=== PATIENT | female | born 1970 | race Caucasian/White ===

== ENCOUNTER 2023-02-27 17:39 | Emergency (ER) | payer OTHER, SELFPAY ==
--- NOTE | ~2023-02-27 | XR_ITS ---
EXAMINATION: XR chest 2V DATE: 02/27/2023 18:27 INDICATION: Chest pain TECHNIQUE: Frontal and lateral views of the chest are obtained COMPARISON: None available FINDINGS: The lungs are free of acute opacities. No pleural effusion or pneumothorax. The cardiomedia stinal silhouette is normal. There is moderate thoracic spondylosis. Surgical changes noted in the pa rtially imaged lower cervical spine. IMPRESSION: 1. No acute cardiopulmonary abnormality. Reviewed, dictated and finalized at location F.
--- NOTE | 2023-02-27 17:47 | ED.CHESTPAIN ---
HPI - Chest Pain General Chief Complaint: Chest Pain Stated Complaint: Chest Wall Pain Time Seen by Provider: 02/27/23 18:04 Mode of arrival: ambulatory Limitations: no limitations History of Present Illness HPI narrative: 52-year-old female presents concern for chest pain. She reports she has had symptoms for about 2 weeks. She reports it feels like a tightness that radiates from the chest to the back. She reports she saw her primary care doctor who told her it was likely indigestion. She reports symptoms seem to get worse today. She reports her primary care doctor told her to go the emergency room, but she did not want to wait so she came here. She denies current shortness of breath, history of heart problems are lung problems. Reports she felt short of breath while lying flat tonight. Patient started taking Victoza about 5 weeks ago for type 2 diabetes MD complaint: chest pain Related Data Allergies Allergy/AdvReac Type Severity Reaction Status Date / Time acetaminophen Allergy Mild Other Verified 02/27/23 17:55 hydrocodone Allergy Mild Other Verified 02/27/23 17:55 pregabalin Allergy Mild Other Verified 02/27/23 17:55 propoxyphene Allergy Mild Other Verified 02/27/23 17:55 PENICILLIN V POTASSIUM Allergy Mild Other Uncoded 02/27/23 17:55 Review of Systems Review of Systems: CONSTITUTIONAL: Denies malaise, chills, sweats, or fever. ENT: Denies rhinorrhea, congestion, sinus pain, otalgia or sore throat. CARDIOVASCULAR: Reports chest pain. Denies palpitations or edema. RESPIRATORY: Denies cough. Reports 1 episode of positional dyspnea. GASTROINTESTINAL: Denies abdominal pain, nausea, vomiting MUSCULOSKELETAL: Reports chest pain radiated to the back. Denies joint pain or myalgia. NEUROLOGIC: Denies numbness, weakness, or headache. All systems reviewed & are unremarkable except as noted in HPI and below PMFSH Comments At time of signature, agree with nursing past medical, surgical, social and family history. There is no relevant family history pertinent to the presenting complaint Exam Narrative: GENERAL: Well-appearing, well-nourished, and in no acute distress. HEAD: Normocephalic, atraumatic. EYES: PERRLA, sclera clear, and EOMI. No nystagmus. ENT: Nares clear, turbinates pink, no rhinorrhea or epistaxis. Mucous membranes moist. TM pearly hogan with sharp light reflex bilaterally; no tragal tenderness. Oropharynx without erythema or lesions. Tonsils not enlarged and without exudate. NECK: Supple. No lymphadenopathy. No jugular venous distension, thyromegaly, or carotid bruits. Carotids were easily palpable bilaterally. CHEST: No respiratory distress. Clear to auscultation. No bony deformities, no asymmetry. Speaks in full sentences. HEART: Regular rate and rhythm. No murmur heard. Normal peripheral pulses. ABDOMEN: Soft, nontender, nondistended, normal active bowel sounds, no palpable masses. EXTREMITIES: Normal range of motion. No edema. Normal strength and sensation. SKIN: Warm, dry, no visible rash. NEURO: Alert and oriented x3. No focal deficits. Cranial nerves II through XII grossly intact PSYCH: Normal mood and affect Course Course Emergency Course: Discussed with patient exam findings, EKG findings, chest x-ray. I advised patient that we cannot fully evaluate her chest pain at the urgent care and she could have further evaluation emergency department. Patient reports she came here because she did not want to go to the emergency department and she would rather follow-up with her primary care doctor. She reports she understands reasons to go the emergency room. I advised patient on [id number] remedy she could take for indigestion Anticipatory guidance given. Patient agrees to follow-up as directed and is aware of reasons to seek care at the emergency department. Portions of this record may have been created with voice recognition software Level of Care: Express Care Visit Reevaluation(s) Reevaluati
[2023-02-27 17:54] VITALS: BP 128/81; PULSE 79; RESP 16; TEMP 36.9; O2SAT 96
--- NOTE | 2023-02-27 18:17 | ECG_ITS ---
Measurements Intervals [place] Rate: 70 P: 16 CO: 149 QRS: -19 QRSD: 101 T: 6 QT: 376 QTc: 406 Interpretive Statements SINUS RHYTHM BASELINE ARTIFACT INCOMPLETE RIGHT BUNDLE BRANCH BLOCK [90+ ms QRS DURATION, TERMINAL R IN V1/V2, 40+ ms S IN I/aVL/V4/V5/V6] BORDERLINE ECG NO PREVIOUS ECG AVAILABLE FOR COMPARISON Electronically Signed On 03-01-2023 14:30:44 CDT by Riley Shirley M.D.
[2023-02-27] MEDS: MAG HYDROX/AL HYDROX/SIMETH 30 ML UDC 15 ML PO (18:34)
[2023-02-27] MEDS: LIDOCAINE HCL 2% VISC SOLN 15 ML UDC PO (18:34)
== END 2023-02-27 19:09 | disposition home or self-care (01) ==
PROVIDERS: Emergency Provider Nurse Practitioner; PCP Family Medicine
DX: R07.9 Chest pain, unspecified (principal)
CPT/HCPCS: 71046; 93005; 99213; A9270; G0463